=== PATIENT | male | born 1940 | race Caucasian/White ===

== ENCOUNTER 2016-08-23 20:14 | Emergency (ER) | payer MEDICARE ==
[2017-02-04] MEDS ORDERED: IMDUR ER TAB 3030 MG PO (12:15)
[2017-02-05] MEDS ORDERED: PANTOPRAZOLE SO40 MG PO (20:50)
[2017-02-05] MEDS ORDERED: TYLENOL 325MG325 MG PO (20:51)
[2017-02-05] MEDS ORDERED: IRON325 M1 PO (20:57)
== END 2016-08-23 22:30 | disposition home or self-care (01) ==
LOC: ER1 20:14
DX: S46.811A Strain of other muscles, fascia and tendons at shoulder and upper arm level, right arm, initial encounter (principal); E11.22 Type 2 diabetes mellitus with diabetic chronic kidney disease; I25.2 Old myocardial infarction; I12.9 Hypertensive chronic kidney disease with stage 1 through stage 4 chronic kidney disease, or unspecified chronic kidney disease; N18.3 Chronic kidney disease, stage 3 (moderate); E78.5 Hyperlipidemia, unspecified; Z95.1 Presence of aortocoronary bypass graft; Z88.0 Allergy status to penicillin; X50.9XXA Other and unspecified overexertion or strenuous movements or postures, initial encounter; Y92.009 Unspecified place in unspecified non-institutional (private) residence as the place of occurrence of the external cause
CPT/HCPCS: 73030; 99283

== ENCOUNTER → 2016-09-08 | Outpatient (CLI) | payer MEDICARE ==
[~2016-09-08] MED LIST: ASPIRIN325 MG PO; CRESTOR40 MG PO; GLUCOTROL 10 MG10 MG PO; IMDUR ER TAB 3030 MG PO; IRON325 M1 PO; LASIX40 MG PO; LIPITOR TAB 2020 MG PO; LISINOPRIL20 MG PO; NORVASC 5 MG TAB5 MG PO; PANTOPRAZOLE SO40 MG PO; TYLENOL 325MG325 MG PO
[2016-09-08 09:57] LABS: BUN/CREATININE RATIO 15 (0-10)
== END ==
LOC: LAB 08:51
PROVIDERS: Internal Medicine Nephrology
DX: N18.3 Chronic kidney disease, stage 3 (moderate) (principal); E78.5 Hyperlipidemia, unspecified
CPT/HCPCS: 36415; 80053; 80061; 82043; 82570

== ENCOUNTER 2016-11-07 10:46 | Observation (INO) | payer MEDICARE ==
[~2016-11-07] VITALS: Ht 167.6 cm; Wt 73.9 kg
[2016-11-07 12:46] LABS: HEMOGLOBIN 12.3 gm/dl (14.0-17.5); RED BLOOD COUNT 4.55 M/UL (4.20-5.50); WHITE BLOOD COUNT 10.9 K/UL (4.5-11.0)
[2016-11-07 13:13] LABS: BUN/CREATININE RATIO 23 (0-10)
[2016-11-07] MEDS ORDERED: NORVASC 5 MG TAB5 MG PO (17:51)
[2016-11-07] MEDS ORDERED: LASIX40 MG PO (17:51)
[2016-11-07] MEDS ORDERED: IMDUR ER TAB 3030 MG PO (17:51)
[2016-11-07] MEDS ORDERED: LISINOPRIL20 MG PO (17:52)
[2016-11-07] MEDS ORDERED: LIPITOR TAB 2020 MG PO (17:52)
[2016-11-07] MEDS ORDERED: ASPIRIN325 MG PO (17:53)
[2016-11-07] MEDS ORDERED: GLUCOTROL 10 MG10 MG PO (17:53)
[2016-11-07] MEDS ORDERED: CRESTOR40 MG PO (17:53)
[2016-11-07] MEDS ORDERED: TYLENOL 325MG325 MG PO (17:55)
[2016-11-08 06:33] LABS: HEMOGLOBIN 11.6 gm/dl (14.0-17.5); RED BLOOD COUNT 4.43 M/UL (4.20-5.50); WHITE BLOOD COUNT 8.8 K/UL (4.5-11.0)
[2016-11-08 06:47] LABS: BUN/CREATININE RATIO 21 (0-10)
[2016-11-08] MEDS ORDERED: LIPITOR TAB 2020 MG PO (16:19)
[2017-02-04] MEDS ORDERED: IMDUR ER TAB 3030 MG PO (12:15)
[2017-02-05] MEDS ORDERED: PANTOPRAZOLE SO40 MG PO (20:50)
[2017-02-05] MEDS ORDERED: TYLENOL 325MG325 MG PO (20:51)
[2017-02-05] MEDS ORDERED: IRON325 M1 PO (20:57)
== END 2016-11-08 17:01 | disposition home or self-care (01) ==
LOC: ER1 10:46 → M/S 15:55 → ZEROF 15:55 → M/S 18:29
PROVIDERS: Physician Assistant; ADMIT Internal Medicine Infectious Disease
PROC: 0BBC3ZX Excision of Right Upper Lung Lobe, Percutaneous Approach, Diagnostic (ICD-10-PCS; principal; 2016-11-07)
DX: C34.11 Malignant neoplasm of upper lobe, right bronchus or lung (principal); J39.8 Other specified diseases of upper respiratory tract; E27.8 Other specified disorders of adrenal gland; I25.10 Atherosclerotic heart disease of native coronary artery without angina pectoris; E11.22 Type 2 diabetes mellitus with diabetic chronic kidney disease; I12.9 Hypertensive chronic kidney disease with stage 1 through stage 4 chronic kidney disease, or unspecified chronic kidney disease; N18.3 Chronic kidney disease, stage 3 (moderate); E78.5 Hyperlipidemia, unspecified; F17.210 Nicotine dependence, cigarettes, uncomplicated; Z95.1 Presence of aortocoronary bypass graft; Z79.82 Long term (current) use of aspirin; Z79.899 Other long term (current) drug therapy; Z88.1 Allergy status to other antibiotic agents
CPT/HCPCS: 36415; 71010; 71250; 77012; 80048; 80053; 82550; 82553; 82962; 83735; 83874; 84484; 85025; 85610; 85730; 88341; 88342; 93005; 94664; 96374; 96375; 99285; G0378; J2270; J2405; Q9965

== ENCOUNTER → 2016-11-27 | Outpatient (CLI) | payer MEDICARE | LOC: NM 07:52 | DX: C34.11 Malignant neoplasm of upper lobe, right bronchus or lung (principal) | CPT/HCPCS: 78306; A9503 ==

== ENCOUNTER → 2016-11-30 | Outpatient (CLI) | payer MEDICARE | LOC: MRI 12:54 | DX: C34.11 Malignant neoplasm of upper lobe, right bronchus or lung (principal) | CPT/HCPCS: 70553; A9577 ==